=== PATIENT | male | born 1965 | race Caucasian/White ===

== ENCOUNTER 2019-11-07 15:03 | Outpatient (CLI) | payer OTHER | END 2019-11-07 15:20 | disposition home or self-care (01) | LOC: SONOGRAMA 15:03 | DX: M75.102 Unspecified rotator cuff tear or rupture of left shoulder, not specified as traumatic (principal) ==

== ENCOUNTER 2019-11-18 15:40 | Outpatient (CLI) | payer OTHER | END 2019-11-18 15:42 | disposition home or self-care (01) | LOC: RAD 15:40 | DX: M75.32 Calcific tendinitis of left shoulder (principal) ==

== ENCOUNTER 2020-03-02 15:57 | Outpatient (CLI) | payer OTHER | END 2020-03-02 16:00 | disposition home or self-care (01) | LOC: RAD 15:57 | PROVIDERS: ATTEND Chiropractor | DX: M54.6 Pain in thoracic spine (principal); M54.2 Cervicalgia ==